=== PATIENT | female | born 1950 | race Caucasian/White ===

== ENCOUNTER 2017-04-01 09:32 | Emergency (ER) | payer MEDICARE ==
[2017-04-01 09:38] VITALS: BP 107/64; PULSE 85; RESP 19; TEMP 98.3; O2SAT 96
[2017-04-01 09:39] VITALS: BMI 28.7
[2017-04-01] MEDS ORDERED: Sodium Chloride 0.9% 1,000 ML IV STA (10:17)
[2017-04-01 10:34] LABS: BASO % 0.3 % (0.0-2.0); EOS # 0.1 K/uL (0.0-0.7); EOS % 0.5 % (0.0-4.0); HEMATOCRIT 34.8 % (34.0-47.0); LYMPH # 1.1 K/uL (1.0-4.3); LYMPH % 8.9 % (20.0-40.0); MEAN CELL VOLUME 90.2 fl (81.0-99.0); MEAN CORPUSCULAR HEMOGLOBIN 29.8 pg (27.0-31.0); MEAN PLATELET VOLUME 7.5 fl (7.2-11.7); MONO # 0.9 K/uL (0.0-0.8); MONO % 7.2 % (0.0-10.0); NEUT % 83.1 % (50.0-75.0); PLATELET COUNT 266 K/uL (130-400); RED CELL DISTRIBUTION WIDTH 13.5 % (11.5-14.5)
[2017-04-01 10:40] LABS: RBC URINE 40 /hpf (0-3); URINE BACTERIA RARE (<OCC); URINE BILIRUBIN NEGATIVE (NEGATIVE); URINE BLOOD MODERATE (NEGATIVE); URINE COLOR YELLOW (YELLOW); URINE GLUCOSE (UA) NEG (Normal); URINE KETONE NEGATIVE (NEGATIVE); URINE LEUKOCYTE ESTERASE LARGE Leu/uL (Negative); URINE PROTEIN 30 mg/dL (NEGATIVE); URINE UROBILINOGEN 0.2-1.0 mg/dL (0.2-1.0); WBC URINE 190 /hpf (0-5)
[2017-04-01 10:46] LABS: ALKALINE PHOSPHATASE 89 U/L (38-126); ALT/SGPT 33 U/L (9-52); AST/SGOT 39 U/L (14-36); BLOOD UREA NITROGEN 21 mg/dl (7-17); CARBON DIOXIDE 26 mmol/L (22-30); CHLORIDE 100 mmol/L (98-107); GFR AFRICAN-AMERICAN > 60; GLUCOSE,RANDOM 99 mg/dL (65-105); LIPASE 42 U/L (23-300); POTASSIUM 4.2 MMOL/L (3.6-5.0); SODIUM 137 mmol/l (132-148)
[2017-04-01] MEDS ORDERED: Sodium Chloride 0.9% 50 ML IV ONE (11:09)
[2017-04-01] MEDS ORDERED: Iohexol 300 100 ML IJ ONE (11:09)
[2017-04-01 11:11] LABS: NEUTROPHIL 91 % (42-75); TOTAL CELLS COUNTED 100
--- NOTE | 2017-04-01 11:49 | ED PDOC ---
HPI: Abdomen Time Seen by Provider: 04/01/17 10:02 Chief Complaint (Nursing): Abdominal Pain Chief Complaint (Provider): Abdominal Pain History Per: Snuff Grinder (Cristy Blood) History/Exam Limitations: language barrier Onset/Duration Of Symptoms: Days (x3 days) Additional Complaint(s): Mariel Levi is a 66 year old female with a previous medical history of hypertension, who presents to the emergency department with a complaint of abdominal pain in the left lower quadrant with ongoing onset of 3 days. Patient describes abdominal pain as being "sharp" and reports having one episode of vomiting yesterday but has since been resolved. She denies any diarrhea, bloody stools, fevers, urinary issues, radiation of pain, or prior symptoms in the past. PMD: Jericho Rodriguez MD Past Medical History Reviewed: Historical Data, Nursing Documentation, Vital Signs Vital Signs: Last Vital Signs Temp 98.3 F 04/01/17 09:37 Pulse 85 04/01/17 09:37 Resp 19 04/01/17 09:37 BP 107/64 04/01/17 09:37 Pulse Ox 96 04/01/17 16:37 - Medical History PMH: Anxiety, HTN Denies: Chronic Kidney Disease - Surgical History Other surgeries: Foot surgery - Family History Family History: States: Unknown Family Hx - Immunization History Hx Tetanus Toxoid Vaccination: No Hx Influenza Vaccination: Yes (2016) Hx Pneumococcal Vaccination: No - Home Medications Home Medications: Ambulatory Orders Medication Instructions Recorded Lisinopril [Zestril] 25 mg PO DAILY 04/01/17 traMADol [Ultram] 50 mg PO TID PRN #12 tab 04/01/17 - Allergies Allergies/Adverse Reactions: Allergies Allergy/AdvReac Type Severity Reaction Status Date / Time No Known Allergies Allergy Verified 04/01/17 09:53 Review of Systems ROS Statement: Except As Marked, All Systems Reviewed And Found Negative Constitutional: Negative for: Fever, Chills Gastrointestinal: Positive for: Vomiting (occured yesterday but has since been resolved), Abdominal Pain (LLQ. Described as "sharp". ). Negative for: Diarrhea , Other (Bloody stools. Radiation to other areas.) Genitourinary Female: Negative for: Dysuria, Frequency, Incontinence, Hematuria Physical Exam - Reviewed Nursing Documentation Reviewed: Yes Vital Signs Reviewed: Yes - Physical Exam Appears: Positive for: Well, Non-toxic, No Acute Distress Skin: Positive for: Normal Color, Warm, Dry Eye Exam: Positive for: EOMI, Normal appearance, PERRL ENT: Positive for: Normal ENT Inspection Neck: Positive for: Normal, Painless ROM, Supple Cardiovascular/Chest: Positive for: Regular Rate, Rhythm Respiratory: Positive for: CNT, Normal Breath Sounds Gastrointestinal/Abdominal: Positive for: Bowel Sounds, Soft, Tenderness (LLQ). Negative for: Mass, Guarding, Rebound Back: Positive for: Normal Inspection. Negative for: L CVA Tenderness, R CVA Tenderness Extremity: Positive for: Normal ROM Neurologic/Psych: Positive for: Alert, Oriented - Laboratory Results Result Diagrams: 04/01/17 10:25 04/01/17 10:25 - ECG O2 Sat by Pulse Oximetry: 96 (RA) Pulse Ox Interpretation: Normal Medical Decision Making Medical Decision Making: Initial Impression: UTI vs. Diverticulitis vs Renal Colic Initial Plan: CT ABD & Pelvis Toradol 30 mg IV NS 1,000 ml IV per 125 mls/hr Urine Culture R-evaluation 12:08 CT abd & pelvis FINDINGS: LOWER THORAX: Unremarkable. LIVER: Slight heterogeneous enhancement of the liver is noted without evidence of discrete mass lesion. The portal vein is patent. GALLBLADDER AND BILE DUCTS: No evidence of acute cholecystitis. The common bile duct is mildly dilated measures up to 13 millimeter in the transverse diameter. PANCREAS: Unremarkable. No gross lesion or ductal dilatation. SPLEEN: Unremarkable. ADRENALS: Unremarkable. No mass. KIDNEYS AND URETERS: Unremarkable. No hydronephrosis. No solid mass. VASCULATURE: Unremarkable. No aortic aneurysm. BOWEL: Descending and sigmoid colon diverticulosis are noted without definite evidence of diverticulitis. APPENDIX: Normal appendix. PERITONEUM: Trace amount of free fluid seen at the left lower abdomen of uncertain etiology. LYMPH NODES: Large retroperitoneal, left common iliac and bilateral pelvic sidewall lymphadenopathy seen. Findings suspicious for metastasis. BLADDER: Mild urinary bladder wall thickening seen. REPRODUCTIVE: The uterus is mildly to moderately enlarged for the patient's age contains multiple heterogeneous soft tissue mass lesion. There is slightly low- attenuation mass at the right aspect of the uterus measures 6.3 x 6 x 6 centimeter. The ovaries are not clearly visualized in this study. BONES: Advanced degenerative changes at the lower lumbar spine. Grade 1 anterior spondylolisthesis of L4 relative to L5. OTHER FINDINGS: None. IMPRESSION: Colonic diverticulosis without definite CT evidence of diverticulitis. Jmiwdf-ru-hshtpzqxda enlarged heterogeneous uterus contains multiple soft tissue mass lesions. The possibility of malignant neoplasm of the uterus / endometrium should be excluded. Large retroperitoneal left common iliac and bilateral pelvic sidewall lymphadenopathy. Findings suspicious for metastasis. Further assessment of the pelvis by ultrasound and or MRI is suggested to exclude malignant neoplasm. Urlafo-mz-eeacwugsbd dilated CBD measures up to 13 millimeter. No evidence of significant intrahepatic biliary ductal dilatation. No evidence of cholecystitis. These findings were reported to and discussed with the emergency room doctorRimmer at 11:50 a.m. on 04/01/2017 US pelvis also confirms uterine masses. Discussed w Dr Dumont FP team who d/w Dr Vigil in clinic, will see in office tuesday for urgent referral. Also referred to [employer] Dr Rodriguez and will need [employer] Onc likely. 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 Provider Scribe Attestation: All medical record entries made by the Scribe were at my direction and personally dictated by me. I have reviewed the chart and agree that the record accurately reflects my personal performance of the history, physical exam, medical decision making, and the department course for this patient. I have also personally directed, reviewed, and agree with the discharge instructions and disposition. Disposition - Clinical Impression Clinical Impression: Adenopathy, Uterine mass - Disposition Referrals: [facility] [Outside] Luis Rodriguez DO [Staff Provider] - Disposition: Routine/Home Disposition Time: 14:00 Condition: STABLE Additional Instructions: There is a possibility you have cancer in the uterus and need urgent testing. See clinic on tuesday for further testing and referral to a specialist. Prescriptions: traMADol [Ultram] 50 mg PO TID PRN #12 tab PRN Reason: Pain, Moderate (4-7) Instructions: Uterine Cancer (DC) Forms: [employer] (Urdu)
--- NOTE | 2017-04-01 12:09 | CT ---
PROCEDURE: CT Abdomen and Pelvis with contrast HISTORY: LLQ pain COMPARISON: None. TECHNIQUE: Contrast dose: 95 mL Omnipaque 300 Radiation dose: Total exam DLP = 841.89 mGy-cm. This CT exam was performed using one or more of the following dose reduction techniques: Automated exposure control, adjustment of the mA and/or kV according to patient size, and/or use of iterative reconstruction technique. FINDINGS: LOWER THORAX: Unremarkable. LIVER: Slight heterogeneous enhancement of the liver is noted without evidence of discrete mass lesion. The portal vein is patent. GALLBLADDER AND BILE DUCTS: No evidence of acute cholecystitis. The common bile duct is mildly dilated measures up to 13 millimeter in the transverse diameter. PANCREAS: Unremarkable. No gross lesion or ductal dilatation. SPLEEN: Unremarkable. ADRENALS: Unremarkable. No mass. KIDNEYS AND URETERS: Unremarkable. No hydronephrosis. No solid mass. VASCULATURE: Unremarkable. No aortic aneurysm. BOWEL: Descending and sigmoid colon diverticulosis are noted without definite evidence of diverticulitis. APPENDIX: Normal appendix. PERITONEUM: Trace amount of free fluid seen at the left lower abdomen of uncertain etiology. LYMPH NODES: Large retroperitoneal, left common iliac and bilateral pelvic sidewall lymphadenopathy seen. Findings suspicious for metastasis. BLADDER: Mild urinary bladder wall thickening seen. REPRODUCTIVE: The uterus is mildly to moderately enlarged for the patient's age contains multiple heterogeneous soft tissue mass lesion. There is slightly low-attenuation mass at the right aspect of the uterus measures 6.3 x 6 x 6 centimeter. The ovaries are not clearly visualized in this study. BONES: Advanced degenerative changes at the lower lumbar spine. Grade 1 anterior spondylolisthesis of L4 relative to L5. OTHER FINDINGS: None. IMPRESSION: Colonic diverticulosis without definite CT evidence of diverticulitis. Vefcoe-hw-pztfbyontn enlarged heterogeneous uterus contains multiple soft tissue mass lesions. The possibility of malignant neoplasm of the uterus / endometrium should be excluded. Large retroperitoneal left common iliac and bilateral pelvic sidewall lymphadenopathy. Findings suspicious for metastasis. Further assessment of the pelvis by ultrasound and or MRI is suggested to exclude malignant neoplasm. Kmluhw-xm-rsatzoeeyb dilated CBD measures up to 13 millimeter. No evidence of significant intrahepatic biliary ductal dilatation. No evidence of cholecystitis. These findings were reported to and discussed with the emergency room Nancy at 11:50 a.m. on 04/01/2017
--- NOTE | 2017-04-01 15:40 | US ---
HISTORY: abnormal CT, pelvic adenopathy COMPARISON: Comparison is made to the previous same-day CT of the abdomen and pelvis with contrast TECHNIQUE: Transabdominal and endovaginal ultrasound examination of the pelvis. FINDINGS: UTERUS: Measures 14.1 x 12.7 x 7 cm. The uterus is moderately enlarged heterogeneous contains multiple lesions. There is a complex mass lesion at the mid right uterus measures 8.5 x 6 x 5.1 centimeter. There is also complex mass lesion at the left uterus measures 5.5 x 4.8 x 4.3 centimeter. The possibility of malignant neoplasm should be excluded given the patient's history of pelvic and retroperitoneal lymphadenopathy. ENDOMETRIUM: The endometrium is not well visualized in this study. CERVIX: No cervical abnormality identified. RIGHT OVARY: Was not visualized. LEFT OVARY: Was not visualized. FREE FLUID: Was not visualized. OTHER FINDINGS: None. IMPRESSION: Moderately enlarged markedly heterogeneous uterus contains soft tissue mass lesions. The largest mass seen at the right aspect of the uterus measures 8.5 centimeter. The possibility of malignant neoplasm should be excluded. The possibility of malignant degeneration of fibroid is also not excluded. Further assessment by enhanced MRI of the pelvis is suggested. Nonvisualization of the endometrial stripe. Nonvisualization of the ovaries in this exam.
== END 2017-04-01 17:28 | disposition home or self-care (01) ==
LOC: H.ER 09:32
DX: N85.8 Other specified noninflammatory disorders of uterus (principal); I10 Essential (primary) hypertension; R11.10 Vomiting, unspecified
CPT/HCPCS: 74177; 76830; 76856; 80053; 81003; 83690; 85025; 87086; 87181; 96374; 99282; J1885; J7040; Q9967